=== PATIENT | male | born 1975 | race Caucasian/White ===

== ENCOUNTER 2016-10-26 13:10 | Observation (INO) | payer OTHER, MEDICAID ==
--- NOTE | 2016-10-26 13:23 | CPEKG ---
Heart Rate: 74 RR Interval: 811 P-R Interval: 160 QRSD Interval: 136 QT Interval: 420 QTC Interval: 466 P [place]: 75 QRS [place]: 65 T Wave [place]: 237 EKG Severity - ABNORMAL ECG - EKG Impression: SINUS RHYTHM EKG Impression: LEFT BUNDLE BRANCH BLOCK Electronically Signed By: Chelsea Ybarra 26-Oct-2016 15:32:15
--- NOTE | 2016-10-26 13:27 | EDPHY ---
H & P Stated Complaint: Midsternal CP radiating into L neck/jaw;similiar to previous IL;+n/v Source: Patient - Personal History Current Tetanus Diphtheria and Acellular Pertussis (TDAP): Yes Tetanus Vaccine Date: 2005 - Medical/Surgical History Hx Asthma: No Hx Chronic Respiratory Disease: No Hx Diabetes: Yes Hx Cardiac Disease: Yes Hx Renal Disease: No Hx Cirrhosis: No Hx Alcoholism: No Hx HIV/AIDS: No Hx Splenectomy or Spleen Trauma: No Other PMH: cardiomyopathy, DM1, SZ, anxiety, depression, chronic pain, gastroparesis, GERD, sleep apnea, neuropathy, BPH, neurogenic bladder, urethral stents, urosepsis, migraines, arthritis, cholecystectomy, mi X 3, CVA w/L sided weakness - Social History Smoking Status: Heavy smoker Time Seen by Provider: 10/26/16 13:20 HPI/ROS: CHIEF COMPLAINT: Chest pain with headache HISTORY OF PRESENT ILLNESS: This is a 41-year-old male presenting to the emergency department complaining of chest pain onset 1 hour prior to arrival, patient also reports headache times 1-2 days unresolving with pain med he has at home. Patient states he is on OxyContin 60 mg twice daily and Dilaudid 8 mg four times daily on a regular basis, but has not been able to keep down his medication due to nausea vomiting since yesterday. Patient reported to me that the left-sided weakness is new, has a history of complex migraines. Patient also reported to Dr. Wiggins the weakness to his left side is normal when he gets migraines, but the chest pain is new. REVIEW OF SYSTEMS: Constitutional: No fever, no chills. Eyes: Light sensitivity ENT: No sore throat. Cardiovascular: chest pain. no palpitations. Respiratory: No cough, no shortness of breath. Gastrointestinal: No abdominal pain. Nausea vomiting Genitourinary: No difficulty urinating Musculoskeletal: Chronic neck and back pain. Skin: No rashes. Neurological: headache. (Karon Parra) - Physical Exam Exam: General Appearance: Alert, no distress. Eyes: Pupils equal and round no pallor or injection. ENT, Mouth: Mucous membranes moist. Respiratory: There are no retractions, lungs are clear to auscultation. Cardiovascular: Regular rate and rhythm. Implanted port noted to left upper anterior chest Gastrointestinal: Abdomen is soft and nontender, no masses, bowel sounds normal. Ileostomy due to toxic megacolon 2014 Neurological: Skin: Warm and dry, no rashes. Musculoskeletal: Neck is supple nontender. Extremities: symmetrical, full range of motion. Psychiatric: Patient is oriented X 3, there is no agitation. (Karon Parra) Constitutional: Initial Vital Signs Temperature (C) 36.6 C 10/26/16 13:12 Heart Rate 78 10/26/16 13:12 Respiratory Rate 16 10/26/16 13:12 Blood Pressure 121/63 H 10/26/16 13:12 O2 Sat (%) 94 10/26/16 13:12 O2 Delivery Mode Room Air O2 (L/minute) 2 Allergies/Adverse Reactions: iodine Allergy (Severe, Verified 10/26/16 13:12) Anaphylaxis metoclopramide HCl [From Reglan] Allergy (Severe, Verified 10/26/16 13:12) seizure Penicillins Allergy (Severe, Verified 10/26/16 13:12) Anaphylaxis albuterol Allergy (Intermediate, Verified 10/26/16 13:12) tachycardia and syncope clonazepam Allergy (Intermediate, Verified 10/26/16 13:12) hallucinate haloperidol [From Haldol] Allergy (Intermediate, Verified 10/26/16 13:12) hallucinate azithromycin Allergy (Mild, Verified 10/26/16 13:12) Rash levofloxacin [From Levaquin] Allergy (Mild, Verified 10/26/16 13:12) Rash morphine Allergy (Mild, Verified 10/26/16 13:12) Itching haloperidol lactate [From Haldol] Allergy (Verified 10/26/16 13:12) Home Medications: Medication Instructions Recorded ALPRAZolam [Xanax] 2 mg PO TID PRN 10/26/16 Aspirin EC [Aspirin EC 81 mg (*)] 81 mg PO DAILY 10/26/16 Atenolol [Tenormin 50 mg (*)] 50 mg PO DAILY 10/26/16 Fenofibrate [Lofibra] 160 mg PO DAILY 10/26/16 Fluticasone Nasal [Flonase Nasal 2 sprays [place] BID 10/26/16 [place] (RX)] Gabapentin [Neurontin] 800 mg PO TID 10/26/16 HYDROmorphone HCL [Dilaudid] 8 mg PO Q4 PRN 10/26/16 Insulin Glargine [Lantus 100 40 units SC BID 10/26/16 UNITS/ML (*)] Insulin Lispro [Humalog] 0 unit SQ AD PRN 10/26/16 Lisinopril [Zestril 2.5 mg (*)] 2.5 mg PO DAILY 10/26/16 Omeprazole [Prilosec 20 mg] 20 mg PO DAILY 10/26/16 Ondansetron Odt [Zofran Odt 4 mg 4 mg PO Q4 PRN 10/26/16 (*)] QUEtiapine FUMARATE [Seroquel 200 200 mg PO HS 10/26/16 mg (*)] Sertraline HCl [Zoloft 100mg (*)] 150 mg PO DAILY 10/26/16 Simvastatin 40 mg PO DAILY 10/26/16 Tizanidine HCl [Zanaflex] 8 mg PO TID PRN 10/26/16 Zolpidem Tartrate [Ambien 10 mg] 10 mg PO HS PRN 10/26/16 carBAMazepine [Tegretol] 200 mg PO DAILY 10/26/16 oxyCODONE HCL [Oxycontin] 60 mg PO BID 10/26/16 Medical Decision Making - Diagnostics EKG Interpretation: 12 lead EKG is interpreted in Trace master View by emergency department physician. There is a left bundle branch block that was not seen in the EKG done in 2013. We do not have a more recent EKG available. (Rupali Wiggins) Imaging Results: Imaging Impressions Chest X-Ray 10/26/16 13:42 Impression: There is no acute intrathoracic abnormality. ED Course/Re-evaluation: Discussed the plan of care: CBC, CMP, troponin, EKG, chest x-ray Discussed with Dr. Wiggins abnormal EKG changes from previous in 2013 1445: Patient reports resolved chest pain resolving headache status post Dilaudid 2 mg IV 1500: Spoke with Dr. Layton, patient admitted tele admit, for further evaluation. Discussed patient admitted with patient and family agreed with plan. 1515: No apparent distress, patient reports resolving chest pain, no nausea vomiting. (Karon Parra) Differential Diagnosis: Other differential diagnosis considered but not limited to STEMI, CVA and nausea vomiting (Karon Parra) Other Provider: I have evaluated and participated in the management of this patient. My co- signature indicates that I have reviewed this chart and that I agree with the findings and the plan of care as documented. My personal history and physical findings include: 41-year-old male with history of migraine headaches that are complex and often associated with left-sided weakness. He also has a history of coronary artery disease, status post myocardial infarction over 10 years ago. He has a history of insulin-dependent diabetes. He has a gastric stimulator in place. He presents today with headache and left-sided weakness that he says are entirely consistent with his previous migraine headaches. He has been evaluated for these fully in the past. He had a head CT performed about 2 months ago, per his report. He cannot recall what hospital has these records. He is also reporting substernal chest pressure that began about 1 hour ago. His headaches are not usually accompanied by chest pain. He has associated nausea and some diaphoresis but is unable to determine whether these symptoms are related to headache or chest pain. He states that he has tried every medication for his migraine headaches. He cannot tolerate any medication other than Dilaudid. Our records indicate that he has left against medical advice in the past when he did not receive opiates. (Rupali Wiggins) - Data Points Laboratory Results: Laboratory Results 10/26/16 13:40 10/26/16 13:40 10/26/16 10/26/16 10/26/16 13:40 13:40 13:40 WBC 9.84 10^3/uL H 10^3/uL (3.80-9.50) RBC 3.69 10^6/uL L 10^6/uL (4.40-6.38) Hgb 8.1 g/dL L g/dL (13.7-17.5) Hct 27.2 % L % (40.0-51.0) MCV 73.7 fL L fL (81.5-99.8) MCH 22.0 pg L pg (27.9-34.1) MCHC 29.8 g/dL L g/dL (32.4-36.7) RDW 16.6 % H % (11.5-15.2) Plt Count 316 10^3/uL 10^3/uL (150-400) MPV 9.7 fL fL (8.7-11.7) Neut % (Auto) 68.1 % % (39.3-74.2) Lymph % (Auto) 25.8 % % (15.0-45.0) Bartholomew % (Auto) 3.6 % L % (4.5-13.0) Eos % (Auto) 1.2 % % (0.6-7.6) Baso % (Auto) 1.0 % % (0.3-1.7) Nucleat RBC Rel Count 0.0 % % (0.0-0.2) Absolute Neuts (auto) 6.70 10^3/uL H 10^3/uL (1.70-6.50) Absolute Lymphs (auto) 2.54 10^3/uL 10^3/uL (1.00-3.00) Absolute Monos (auto) 0.35 10^3/uL 10^3/uL (0.30-0.80) Absolute Eos (auto) 0.12 10^3/uL 10^3/uL (0.03-0.40) Absolute Basos (auto) 0.10 10^3/uL 10^3/uL (0.02-0.10) Absolute Nucleated RBC 0.00 10^3/uL 10^3/uL (0-0.01) Immature Gran % 0.3 % % (0.0-1.1) Immature Gran # 0.03 10^3/uL 10^3/uL (0.00-0.10) PT 14.2 SEC SEC (12.0-15.0) INR 1.11 (0.83-1.16) Sodium 139 mEq/L mEq/L (134-144) Potassium 4.0 mEq/L mEq/L (3.5-5.2) Chloride 107 mEq/L mEq/L (97-110) Carbon Dioxide 23 mEq/l mEq/l (22-31) Anion Gap 9 mEq/L mEq/L (8-16) BUN 10 mg/dL mg/dL (7-23) Creatinine 1.2 mg/dL mg/dL (0.7-1.3) Estimated GFR > 60 Glucose 176 mg/dL H mg/dL (70-100) Calcium 8.6 mg/dL mg/dL (8.5-10.4) Troponin I < 0.012 ng/mL ng/mL (0-0.034) Medications Given: Discontinued Medications Hydromorphone HCl (Dilaudid) 2 mg IVP EDNOW ONE Stop: 10/26/16 14:28 Last Admin: 10/26/16 14:40 Dose: 2 mg Sodium Chloride (Ns) 1,000 mls @ 0 mls/hr IV ONCE ONE PRN Reason: Wide Open Stop: 10/26/16 13:43 Last Admin: 10/26/16 13:44 Dose: 1,000 mls Ondansetron HCl (Zofran) 4 mg IVP EDNOW ONE Stop: 10/26/16 14:29 Last Admin: 10/26/16 14:49 Dose: 4 mg Departure - Departure Disposition: [facility] Clinical Impression: Abnormal EKG Chest pain Qualifiers: Chest pain type: unspecified Qualified Code(s): R07.9 - Chest pain, unspecified Condition: Good
[2016-10-26] MEDS ORDERED: NS 1,000 ML IV ONE (13:42)
[2016-10-26 13:45] LABS: % IMMATURE GRANULYOCYTES 0.3 % (0.0-1.1); ABSOLUTE IMMATURE GRANULOCYTES 0.03 10^3/uL (0.00-0.10); ADD DIFF? NO; ADD MORPH? NO; ADD SCAN? NO; ATYPICAL LYMPHOCYTE FLAG 10 (0-99); FRAGMENT RBC FLAG 20 (0-99); HEMATOCRIT 27.2 % (40.0-51.0); HEMOGLOBIN 8.1 g/dL (13.7-17.5); LEFT SHIFT FLG 0 (0-99); LIPEMIA HEMOLYSIS FLAG 70 (0-99); MEAN CELL HEMOGLOBIN CONCENTR. 29.8 g/dL (32.4-36.7); MEAN CELL VOLUME 73.7 fL (81.5-99.8); MEAN PLATELET VOLUME 9.7 fL (8.7-11.7); PLATELET CLUMPS FLAG 0 (0-99); PLATELET COUNT 316 10^3/uL (150-400); RED BLOOD CELL COUNT 3.69 10^6/uL (4.40-6.38); RED CELL DISTRIBUTION WIDTH 16.6 % (11.5-15.2)
[2016-10-26 13:58] LABS: ANION GAP 9 mEq/L (8-16); CALCIUM 8.6 mg/dL (8.5-10.4); CARBON DIOXIDE 23 mEq/l (22-31); CHLORIDE 107 mEq/L (97-110); CREATININE 1.2 mg/dL (0.7-1.3); GLOMERULAR FILTRATION RATE > 60; GLUCOSE 176 mg/dL (70-100); INR 1.11 (0.83-1.16); PROTIME(PATIENT) 14.2 SEC (12.0-15.0); SODIUM 139 mEq/L (134-144)
[2016-10-26 14:10] LABS: TROPONIN I < 0.012 ng/mL (0-0.034)
[2016-10-26] MEDS ORDERED: HYDROmorphONE/DILAUDID 1 MG/ML SYR IVP ONE (14:27)
[2016-10-26] MEDS ORDERED: ONDANSETRON 4 MG/2 ML VIAL IVP ONE (14:28)
[2016-10-26] MEDS ORDERED: ONDANSETRON DISINTEGRATING 4 MG TAB PO PRN (15:40)
[2016-10-26] MEDS ORDERED: TEMAZEPAM 15 MG CAP PO PRN (15:40)
[2016-10-26] MEDS ORDERED: METOCLOPRAMIDE 10 MG TAB PO PRN (15:40)
[2016-10-26] MEDS ORDERED: ACETAMINOPHEN 325 MG TAB PO PRN (15:40)
[2016-10-26] MEDS ORDERED: METOCLOPRAMIDE 10 MG/2 ML VIAL IVP PRN (15:40)
[2016-10-26] MEDS ORDERED: ALPRAZOLAM 2 MG PO PRN (15:44)
[2016-10-26] MEDS ORDERED: NON-FORMULARY NEW DRUG (Zolpidem Tartrate [Ambien 10 Mg] 10 MG) PO PRN (15:44)
[2016-10-26] MEDS ORDERED: HYDROMORPHONE HCL 8 MG PO PRN (15:44)
[2016-10-26] MEDS ORDERED: D50W 25 GM/50 ML SYR IVP PRN (15:50)
[2016-10-26] MEDS ORDERED: NON-FORMULARY NEW DRUG (Gabapentin [Neurontin] 800 MG) PO SCH (16:00)
[2016-10-26] MEDS ORDERED: HYDROmorphONE/DILAUDID 1 MG/ML SYR IVP STA (16:04)
[2016-10-26] MEDS ORDERED: HYDROmorphONE/DILAUDID 1 MG/ML SYR ONE (16:05)
--- NOTE | 2016-10-26 17:04 | GHP ---
[f rep st] HISTORY AND PHYSICAL DATE OF ADMISSION: 10/26/2016 CHIEF COMPLAINT: Primarily chest pain. HISTORY OF PRESENT ILLNESS: This is a 41-year-old man with multiple medical problems who presents with a few complaints, primarily chest pain. This is described as substernal pressure, exertional and relieved with rest. This has been off and on for a few days. He has a history of, he tells me, 3 MIs. His only stent was in August 2015. This was done at [facility]. He is not sure exactly where this was placed. He had been on aspirin and Plavix for a year. He has been taken off Plavix about 2 months ago. He also complains of a worsening migraine, with some nausea and vomiting. He has complex migraines and has some left-sided weakness, which is typical for his migraines. PAST MEDICAL/SURGICAL HISTORY: 1. "Toxic megacolon" status post total colectomy in May 2015 at [facility]. 2. Coronary artery disease status post stent, as above, in August 2015. 3. Complex migraines. 4. Diabetes mellitus type 1. 5. BPH. 6. Chronic pain, on continuous narcotics. 7. History of hypertrophic obstructive cardiomyopathy. 8. Depression. 9. Foot surgery. 10. Osteomyelitis. 11. Seizure disorder. MEDICATIONS: Please see medication reconciliation. ALLERGIES: Iodine, Reglan, penicillin, albuterol, clonazepam, Haldol, azithromycin, Levaquin, morphine. SOCIAL HISTORY: He is . He smokes. He does not drink. FAMILY HISTORY: Notable for coronary artery disease. REVIEW OF SYSTEMS: A 10-point review of systems is conducted and is negative, except per HPI. PHYSICAL EXAMINATION: VITAL SIGNS: Blood pressure 111/64, heart rate is 69, respiration rate 16, saturating 100% on 2 L, temperature is 36.6. GENERAL: The patient is a pleasant man who is resting in bed. Appears comfortable. HEENT: Shows him to be normocephalic, atraumatic. CHEST: Shows him to have a left-sided port in place. CARDIOVASCULAR: Regular rate and rhythm. No murmurs , rubs, or gallops. PULMONARY: Lungs are clear to auscultation bilaterally. ABDOMEN: Soft, nontender, nondistended. He has a right lower quadrant ileostomy. SKIN: Shows multiple tattoos, but no rash. : No Link. NEUROLOGIC: Shows him to be alert and oriented x3. He is moving all extremities. PSYCHIATRIC: Shows normal mood and affect. LABS: White count is 9.8, hemoglobin is 8.1. INR is 1.1. Basic metabolic panel is normal. Initial troponin is negative. DATA: Chest x-ray, which I personally viewed and interpreted, shows left-sided port in place. Normal-sized heart. Nothing acute. EKG, which I personally viewed and interpreted, shows left bundle branch block. I compared this to previous. He had an incomplete left bundle previously. IMPRESSION AND PLAN: A 41-year-old man with a history of coronary artery disease, presents with chest pain. 1. Chest pain: Discussed with Tiffanie Pressley. Cardiology will consult. Will trend his troponins. Note that he has a left bundle branch block. He did previously have an incomplete left bundle. I have ordered an echocardiogram. Will defer to Cardiology on ischemic evaluation. 2. Complex migraine with acute headache. This is better. This is a chronic problem for him. 3. Anemia. I compared this to his recent hemoglobin on [place], and he is no more anemic than previously. Will not workup further, other than getting a hemoglobin tomorrow morning. 4. Nausea and vomiting. I have provided him with symptomatic relief. This is also somewhat of a chronic problem for him. 5. Diabetes mellitus type 1 with multiple complications. Continue his home insulin. 6. Chronic pain, on continuous narcotics. Will continue his home high-dose narcotics for now. 7. Seizure disorder. Tegretol. /[id number]/MODL MTDD
[2016-10-26] MEDS ORDERED: ALPRAZolam 1 MG TAB PO PRN (17:31)
[2016-10-26] MEDS ORDERED: ZOLPIDEM TARTRATE 5 MG TAB PO PRN (17:39)
[2016-10-26] MEDS ORDERED: PROMETHAZINE HCL 25 MG TAB PO PRN (18:18)
[2016-10-26] MEDS: HYDROmorphONE/DILAUDID 1 MG/ML SYR IVP PRN ×2 (18:36→22:22)
[2016-10-26] MEDS: INSULIN LISPRO 100 UNIT/ML SC SCH (19:43)
[2016-10-26] MEDS ORDERED: NON-FORMULARY NEW DRUG (Oxycodone Hcl [Oxycontin] 60 MG) PO SCH (21:00)
[2016-10-26] MEDS: INSULIN GLARGINE 100 UNITS/ML SYRINGE SC SCH (21:04)
[2016-10-26] MEDS: FLUTICASONE NASAL 120 SPRAYS/16 GM MDI EACHNARE SCH (21:04)
[2016-10-26] MEDS: QUEtiapine FUMARATE 200 MG TAB PO SCH (21:04)
[2016-10-26] MEDS: GABAPENTIN 400 MG CAP PO SCH (21:04)
[2016-10-26] MEDS: oxyCODONE CR 30 MG TAB PO SCH (21:04)
[2016-10-26] MEDS: ONDANSETRON 4 MG/2 ML VIAL IVP PRN (21:17)
[2016-10-27] MEDS: QUEtiapine FUMARATE 200 MG TAB PO SCH (00:28)
[2016-10-27] MEDS: GABAPENTIN 400 MG CAP PO SCH ×3 (00:28→16:07)
[2016-10-27] MEDS: oxyCODONE CR 30 MG TAB PO SCH ×2 (00:29→09:10)
[2016-10-27] MEDS: HYDROmorphONE/DILAUDID 1 MG/ML SYR IVP PRN ×4 (02:25→14:28)
[2016-10-27 05:26] LABS: % IMMATURE GRANULYOCYTES 0.5 % (0.0-1.1); ABSOLUTE IMMATURE GRANULOCYTES 0.05 10^3/uL (0.00-0.10); ADD DIFF? NO; ADD MORPH? NO; ADD SCAN? NO; ATYPICAL LYMPHOCYTE FLAG 10 (0-99); FRAGMENT RBC FLAG 20 (0-99); HEMATOCRIT 26.5 % (40.0-51.0); HEMOGLOBIN 7.9 g/dL (13.7-17.5); LEFT SHIFT FLG 0 (0-99); LIPEMIA HEMOLYSIS FLAG 70 (0-99); MEAN CELL HEMOGLOBIN 22.3 pg (27.9-34.1); MEAN CELL HEMOGLOBIN CONCENTR. 29.8 g/dL (32.4-36.7); MEAN CELL VOLUME 74.6 fL (81.5-99.8); MEAN PLATELET VOLUME 9.7 fL (8.7-11.7); PLATELET CLUMPS FLAG 0 (0-99); PLATELET COUNT 296 10^3/uL (150-400); RED BLOOD CELL COUNT 3.55 10^6/uL (4.40-6.38); RED CELL DISTRIBUTION WIDTH 16.7 % (11.5-15.2)
[2016-10-27 05:47] LABS: ALANINE AMINOTRANSFERASE 24 IU/L (21-72); ALBUMIN 3.5 g/dL (3.5-5.0); ALKALINE PHOSPHATASE 77 IU/L (38-126); ANION GAP 6 mEq/L (8-16); ASPARTATE AMINOTRANSFERASE 17 IU/L (17-59); BILIRUBIN,TOTAL 0.5 mg/dL (0.1-1.4); CALCIUM 8.9 mg/dL (8.5-10.4); CARBON DIOXIDE 25 mEq/l (22-31); CHLORIDE 110 mEq/L (97-110); GLOMERULAR FILTRATION RATE > 60; GLUCOSE 56 mg/dL (70-100); POTASSIUM 4.1 mEq/L (3.5-5.2); SODIUM 141 mEq/L (134-144); TOTAL PROTEIN 6.4 g/dL (6.3-8.2)
[2016-10-27 05:53] LABS: TROPONIN I < 0.012 ng/mL (0-0.034)
[2016-10-27] MEDS: ONDANSETRON 4 MG/2 ML VIAL IVP PRN (08:13)
[2016-10-27] MEDS ORDERED: LISINOPRIL 2.5 MG TAB PO SCH (09:00)
[2016-10-27] MEDS ORDERED: PANTOPRAZOLE SODIUM 40 MG TAB PO SCH (09:00)
[2016-10-27] MEDS ORDERED: FENOFIBRATE 160 MG PO SCH ×2 (09:00)
[2016-10-27] MEDS ORDERED: NON-FORMULARY NEW DRUG (Simvastatin [Simvastatin] 40 MG) PO SCH (09:00)
[2016-10-27] MEDS ORDERED: carBAMazepine 200 MG TAB PO SCH (09:00)
[2016-10-27] MEDS ORDERED: ATORVASTATIN CALCIUM 20 MG TAB PO SCH (09:00)
[2016-10-27] MEDS ORDERED: ATENOLOL 50 MG TAB PO SCH (09:00)
[2016-10-27] MEDS ORDERED: SERTRALINE HCL 100 MG TAB PO SCH (09:00)
[2016-10-27] MEDS ORDERED: NON-FORMULARY NEW DRUG (Omeprazole [Prilosec 20 Mg] 20 MG) PO SCH (09:00)
[2016-10-27] MEDS ORDERED: ASPIRIN EC 81 MG TAB PO SCH (09:00)
--- NOTE | 2016-10-27 09:15 | ECHO ---
[id number] + + [address] : : [place] [address] : : [phone] + Adult Echocardiographic Report + ----+ :Name: MARLA FLORENTINO WStudy Date: 10/26/2016 04:05 PM : : Hospital Admission Number: [id number] Location : ER: :: 1975 Gender: Male Height: 83 in : :Age: 41 yrs Race: WH Weight: 230 lb : :Reason For Study: Chest pain/hx HOCM : : BSA: 2.5 meters2 : + ----+ MMode/2D Measurements \T\ Calculations IVSd: 1.2 cm LVIDd: 5.2 cm FS: 36.1 % Ao root diam: LVPWd: 0.96 cm LVIDs: 3.3 cm EDV(Teich): 3.8 cm 131.8 ml LA dimension: ESV(Teich): 3.8 cm 45.8 ml EF(Teich): 65.3 % LVLd ap4: 8.0 cm SV(MOD-sp4): EDV(MOD-sp4): 44.0 ml 67.0 ml LVLs ap4: 6.4 cm ESV(MOD-sp4): 23.0 ml EF(MOD-sp4): 65.7 % Normal Measurement Values: + + :LVIDd (3.5-5.7cm) IVSd (0.6-1.1cm) LVPWd (0.6-1.1cm) Aortic Root (2.0-3.7cm)Left Atrium (1.5-4.0cm): :LV Vol(d) (76-115ml) LV Vol(s) (29-48ml) Ejec Fraction (50-65%)PV Isael (0.6- 1.2m/s) TV Isael (0.4-1.0m/s) : :MV E Isael (0.8-1.0m/s)MV A Isael (0.3-1.0m/s)LVOT Isael (0.7-1.2m/s) Asc Ao Isael ( 0.9-1.8m/s) : + + Doppler Measurements \T\ Calculations MV E max isael: 73.1 cm/sec MV A max isael: 66.1 cm/sec MV E/A: 1.1 Left Ventricle The left ventricle is normal in size. There is mild concentric left ventricular hypertrophy. Left ventricular systolic function is normal. Ejection Fraction = 70-75%. No regional wall motion abnormalities noted. Right Ventricle The right ventricle is normal in size and function. Atria The left atrial size is normal. Right atrial size is normal. The interatrial septum is intact with no evidence for an atrial septal defect. Mitral Valve The mitral valve is normal in structure and function. There is no evidence of mitral valve prolapse. There is no mitral valve stenosis. There is mild mitral regurgitation. Tricuspid Valve Normal tricuspid valve. There is trace tricuspid regurgitation. Aortic Valve The aortic valve is trileaflet. The aortic valve opens well. Mild subvalvular aortic stenosis. Gradient subvalvular AV is 16mmHG. There is no aortic insufficiency. Pulmonic Valve The pulmonic valve is normal in structure and function. There is no pulmonic valvular regurgitation. Great Vessels The aortic root is normal size. Pericardium/Pleural Trivial anterior pericardial effusion. Conclusion A complete two-dimensional transthoracic echocardiogram was performed (2D, M-mode, Doppler and color flow Doppler). Normal LV size. Left ventricular systolic function is normal. Ejection Fraction = 70-75%. There is mild concentric left ventricular hypertrophy. There are no regional wall motion abnormalities. Mild prominence of the basal interventricular septum without other findings suggesting HCM. Normal appearing cardiac valves. Elevated LVOT velocities without a dynamic LVOT obstruction. There is mild mitral regurgitation. There is trace tricuspid regurgitation. Trivial anterior pericardial effusion Final Reading Physician: Cheng Georges signed on 10/27/2016 09:13 AM Ordering Physician: Royal Layton Performed By: Carly Landin, DESHAWNCS
[2016-10-27] MEDS: HYDROmorphONE/DILAUDID 4 MG TAB PO PRN ×3 (09:17→17:31)
[2016-10-27] MEDS ORDERED: INSULIN GLARGINE 100 UNITS/ML SYRINGE SC SCH ×2 (09:28→10:15)
[2016-10-27] MEDS: INSULIN LISPRO 100 UNIT/ML SC SCH ×3 (10:05→16:11)
--- NOTE | 2016-10-27 10:38 | HOSPPROG ---
Hospitalist Progress Note Assessment/Plan: DIAGNOSES: -stated chest pain; will rule out for myocardial infarction but states history of stent placed at [facility] last year -stated Headache; this is a recurrence of his chronic headache -nausea with 1 episode of emesis last night, taking oral medicines now -chronic neck pain and headache with chronic daily narcotic dependency, prescribed -microcytic anemia; the cause for this is unclear but presumably it may represent iron deficiency but will check iron to be certain it is not due to some other cause. The anemia reason paste next [place] react the chronic and appears to be at his baseline. He reports history of colectomy for toxic megacolon This patient presents with a variety of pains, with a white blood cell count elevation being the only objective finding of any kind so far. He does have a chronic prescribed narcotic dependency for chronic pain, and has a MediPort in place for reasons which are unclear to me. I did look in the [facility] the software and I see that he does not appear to be getting much in the way of extra narcotic beyond his usual however I noticed that his last 6 prescriptions for narcotic have come from 5 different physicians. PLANS: -he will be getting a Lexiscan stress test today(has left bundle branch block) -will try and stick with oral narcotic medicines at his usual doses as much as possible, and he should not need any new prescriptions when he leaves he just got full prescriptions on October 05 - SUBJECTIVE: Chest pain seems to have resolved Today complains of severe headache which is a chronic issue for him No more vomiting today, had nausea which responded to Zofran and was able to take his oral pills today OBJECTIVE Vitals reviewed: Stable without fever [employer], my review: Sinus rhythm, left bundle branch block Exam: alert oriented skin warm dry color ok resps not labored lungs clear BSs heart regular abd soft nondistended nontender, bowel sounds present limbs warm, no edema iv site ok Laboratory data: Troponin normal Echocardiogram: Preserved LV function at 70% ejection fraction, increased outflow tract velocities are mentioned without findings of outflow tract obstruction Objective: Vital Signs Temp Pulse Resp BP Pulse Ox 36.9 C 64 9 L 106/58 L 100 10/27/16 07:46 10/27/16 07:46 10/27/16 07:46 10/27/16 07:46 10/27/16 07:46 Laboratory Results 10/27/16 05:10 10/27/16 05:10 10/26/16 10/27/16 10/28/16 06:59 06:59 06:59 Intake Total 1400 Output Total 1200 275 Balance 200 -275 PT 14.2 SEC (12.0-15.0) 10/26/16 13:40 INR 1.11 (0.83-1.16) 10/26/16 13:40 ICD10 Worksheet Patient Problems: Problems Problem Status Onset Abnormal EKG Acute Chest pain Acute Nausea and vomiting Acute UTI (lower urinary tract infection) Acute
[2016-10-27] MEDS: INSULIN GLARGINE 100 UNITS/ML SYRINGE SC SCH (12:01)
[2016-10-27] MEDS: FLUTICASONE NASAL 120 SPRAYS/16 GM MDI EACHNARE SCH (12:12)
[2016-10-27] MEDS ORDERED: REGADENOSON 0.4 MG/5 ML SYR IVP ONE (14:06)
--- NOTE | 2016-10-27 14:21 | PDCARST ---
CAR Stress Test Results Type of Stress Test: Lexiscan Indication: cp/CAD Description of Procedure: After informed consent was obtained, pt was established to ECG, blood pressure, HR and oximetry monitoring. STRESS EKG AND HEMODYNAMIC DATA. Resting heart rate: 61 BPM. Resting ECSR, LBBB. Resting blood pressure: 107/59 mmHg. O2 saturation at rest: 92%. Peak heart rate: 90 BPM. Peak blood pressure: 120/61 mmHg. Arrhythmias: none. Symptoms: The patient experienced no typical symptoms of angina during stress or recovery. Stress/Infusion ECG: No change in rhythm with no significant ST/T wave changes. Stress/infusion O2 saturation: 99% Impression: Uneventful Lexiscan infusion. Conclusion: Await nuclear images.
[2016-10-27 15:53] VITALS: BP 111/59; PULSE 65; RESP 17; TEMP 98.6; O2SAT 95
[2016-10-27] MEDS ORDERED: PROCHLORPERAZINE MALEATE 25 MG SUPPR PR PRN (18:19)
[2016-10-27] MEDS ORDERED: PROCHLORPERAZINE MALEATE 10 MG TAB PO PRN (18:20)
--- NOTE | 2016-10-27 18:36 | PDDCSUM ---
Discharge Summary Discharge Summary: DISCHARGE DIAGNOSES: -Chest pain, resolved, myocardial infarction is ruled out -stress test with myocardial perfusion imaging showing no evidence of cardiac dysfunction or ischemia or infarction - anemia, microcytic PROCEDURES: -stress test with myocardial perfusion imaging, normal -echocardiogram with normal ejection fraction, no evidence of wall motion abnormalities HOSPITAL COURSE SUMMARY: This patient came to the hospital with the main complaint of chest pain and stating a history of 3 prior myocardial infarctions and previous cardiac stenting. He also complained of headache and nausea which were symptoms typical of his previous migraine headaches. He has a chronic pain syndrome with chronic headache and neck pain as the primary components, and is on chronic daily prescribed narcotics for this the at moderately high doses. Here in the hospital he had no heart failure and no arrhythmia and ruled out for myocardial infarction. The patient did undergo Lexiscan stress testing which he tolerated well. The images showed no evidence of previous infarction, no evidence of ischemia, normal ejection fraction. He also had an echocardiogram here showing no evidence of wall motion abnormalities and normal ejection fraction was seen. He was assessed elsewhere for what he reports as his 3 prior myocardial infarctions. Whether these were episodes associated with small troponin elevations and minimal injury that would not be seen on imaging studies or whether these really happened is uncertain as I do not have the outside records at this time. At this point his pain is completely resolved he is not having any shortness of breath and there is no sign of other significant or concerning cause of his chest pain syndrome. From the standpoint he is stable for discharge to home. 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 The patient did complain of ongoing headache and nausea here. The nausea he says still present but he has been eating large meals during the day today. He has complained of inadequate pain relief with his oral narcotic medicines which are moderately high in dose. He was requesting IV narcotic pretty much by the clock as it had been ordered a p.r.n. medicine here. This afternoon I spoke with the patient and his and recommended that would look for other ways to manage his headache pain and I suggested using some Compazine and some Solu- Medrol and possibly Toradol as he is allergic to Phenergan and can't take statin medicines with a history of heart disease. After this discussion the patient and his decided they would prefer to leave the hospital and manage his symptoms at home. He does have an appointment with his primary pain physician Dr. Brian Orta tomorrow at 1 o'clock. The patient does have anemia which is chronic for him and unchanged from the last laboratory data which we had here. This was microcytic and is recommended that he have ongoing evaluation with his primary doctor care doctor MEDICATION CHANGES: none FOLLOW-UP PLAN: with Dr. Orta tomorrow and his primary care physician in 2 days Greater than 35 minutes bedside and care coordination time today
[2016-10-28] MEDS ORDERED: methylPREDNISolone SOD SUCC 125 MG/2 ML VIAL IVP SCH
== END 2016-10-27 19:26 | disposition home or self-care (01) ==
LOC: INTOOBSV 15:09 → F2W 17:16
PROVIDERS: ADMIT Student in an Organized Health Care Education/Training Program; ATTEND Internal Medicine
DX: R07.9 Chest pain, unspecified (principal); D64.9 Anemia, unspecified; I25.2 Old myocardial infarction; Z95.5 Presence of coronary angioplasty implant and graft; G89.4 Chronic pain syndrome; G43.909 Migraine, unspecified, not intractable, without status migrainosus; I42.9 Cardiomyopathy, unspecified; E10.43 Type 1 diabetes mellitus with diabetic autonomic (poly)neuropathy; F32.9 Major depressive disorder, single episode, unspecified; F41.9 Anxiety disorder, unspecified; K21.9 Gastro-esophageal reflux disease without esophagitis; G47.30 Sleep apnea, unspecified; N40.0 Benign prostatic hyperplasia without lower urinary tract symptoms; I69.954 Hemiplegia and hemiparesis following unspecified cerebrovascular disease affecting left non-dominant side; F17.200 Nicotine dependence, unspecified, uncomplicated
CPT/HCPCS: 71010; 78452; 93005; 93017; 93306; 96374; 96375; 97161; 99285; A9500; G0378; G8978; G8979; J1170; J1642; J1815; J2405; J2785

== ENCOUNTER 2016-11-02 15:26 | Emergency (ER) | payer OTHER, MEDICAID ==
--- NOTE | 2016-11-02 15:55 | CPEKG ---
Heart Rate: 68 RR Interval: 882 P-R Interval: 160 QRSD Interval: 134 QT Interval: 424 QTC Interval: 451 P [place]: 73 QRS [place]: 57 T Wave [place]: 210 EKG Severity - ABNORMAL ECG - EKG Impression: SINUS RHYTHM EKG Impression: LEFT BUNDLE BRANCH BLOCK Electronically Signed By: Josemanuel Ferris 02-Nov-2016 21:13:46
--- NOTE | 2016-11-02 15:55 | EDPHY ---
H & P Stated Complaint: Here last week;CP has "never gone away";still n/v;can't keep pain meds down HPI/ROS: HPI CHIEF COMPLAINT: Nausea vomiting HISTORY OF PRESENT ILLNESS: This patient very pleasant 41-year-old male significant past medical history for chronic pain, migraine headaches, and recent hospitalization for chest pain with an abnormal EKG, as well as nausea vomiting, At that time he had a negative nuclear stress test and was ruled out for acute coronary syndrome. He also had a normal echocardiogram. His recent hospitalization discharge summary was reviewed. Patient presents back to the emergency room for persistent nausea vomiting. Patient denies any significant chest pain or shortness of breath at this time but does state that the reason he came back is persistent nausea vomiting. He is unable to tolerate his home medications. He tells me he has tried Phenergan and Zofran at home. He denies fever. Denies cough. He states he is unable to tolerate p. o. and cannot take his daily medications including seizure medications became concerned that he cannot take his seizure medications down it return emergency room for further IV fluids and nausea medicine. He does tell me the output of his ileostomy has been watery. Past Medical History: Multiple chronic medical problems including insulin- dependent diabetes, diabetic gastroparesis, narcotic dependency, BPH, chronic pain, seizures, hypertrophic cardiomyopathy, osteomyelitis. Past Surgical History: Left chest port, ileostomy due to toxic megacolon Social History: Denies daily use of drugs alcohol tobacco products does take 8 mg p.o. Dilaudid every 4 hours Family History: Noncontributory ROS REVIEW OF SYSTEMS: A comprehensive 10 point review of systems is otherwise negative aside from elements mentioned in the history of present illness. Exam Constitutional appears well nontoxic triage nursing summary reviewed, vital signs reviewed, awake/alert. Eyes normal conjunctivae and sclera, EOMI, PERRLA. HENT normal inspection, atraumatic, moist mucus membranes, no epistaxis, neck supple/ no meningismus, no raccoon eyes. Respiratory clear to auscultation bilaterally, normal breath sounds, no respiratory distress, no wheezing. Cardiovascular left chest: Port left-sided chest, rate normal, regular rhythm , no murmur, no edema, distal pulses normal. Gastrointestinal right lower quadrant abdomen ileostomy present, liquid output , soft, non-tender, no rebound, no guarding, normal bowel sounds, no distension , no pulsatile mass. Genitourinary no CVA tenderness. Musculoskeletal no midline vertebral tenderness, full range of motion, no calf swelling, no tenderness of extremities, no meningismus, good pulses, neurovascularly intact. Skin pink, warm, & dry, no rash, skin atraumatic. Neurologic awake, alert and oriented x 3, AAOx3, moves all 4 extremities equally, motor intact, sensory intact, CN II-XII intact, normal cerebellar, normal vision, normal speech. Psychiatric normal mood/affect. Heme/Lymph/Immune no lymphadenopathy. Differential Diagnosis: Includes but is not limited to in a particular order, electrolyte disturbance, dehydration, acute kidney injury, acute nausea vomiting from gastroparesis Medical Decision Making: Plan for this patient IV establishment, IV fluid bolus , IV nausea medication Zofran IV Dilaudid for acute pain control 2 mg. Check electrolytes, EKG chest x-ray blood work. Re-evaluate. Re-evaluation: EKG interpretation by me on record in [employer] system. Impression time of EKG 1554, this is sinus rhythm rate of 68 there is a left bundle-branch block present. Otherwise unremarkable EKG had on appreciate acute ischemia with this EKG of left bundle-branch block. When compared to his old EKG no acute changes. This is compared to the EKG dated 10/26/2016. 1741: Re-examination at this time patient is feeling better with IV fluids and nausea medicine. Does tell me he is slightly still nauseous I have ordered an p.o. Compazine. This time I did re-evaluate he is resting comfortably abdomen soft. He is listening to music to headphones resting comfortably. 194: Re-evaluation at this time patient initially did have worsening nausea 2nd around the meds have been ordered 2 more mg IV Dilaudid 25 mg of Benadryl this was after IV Valium and Compazine. Re-evaluate shortly. 2002: Re-evaluation at this time patient feels much better after IV Dilaudid IV Benadryl is resting comfortably no vomiting able to p.o. challenge well. Is requesting be discharged home. Is stands should follow up with his primary care doctor return to the emergency room if develops any further symptoms of vomiting or can't tolerate p.o.. Source: Patient - Personal History Current Tetanus Diphtheria and Acellular Pertussis (TDAP): Yes Tetanus Vaccine Date: 2005 - Medical/Surgical History Hx Asthma: No Hx Chronic Respiratory Disease: No Hx Diabetes: Yes Hx Cardiac Disease: Yes Hx Renal Disease: No Hx Cirrhosis: No Hx Alcoholism: No Hx HIV/AIDS: No Hx Splenectomy or Spleen Trauma: No Other PMH: cardiomyopathy, DM1, SZ, anxiety, depression, chronic pain, gastroparesis, GERD, sleep apnea, neuropathy, BPH, neurogenic bladder, urethral stents, urosepsis, migraines, arthritis, cholecystectomy, mi X 3, CVA w/L sided weakness - Social History Smoking Status: Heavy smoker Constitutional: Initial Vital Signs Temperature (C) 37 C 11/02/16 15:30 Heart Rate 70 11/02/16 15:30 Respiratory Rate 16 11/02/16 15:30 Blood Pressure 109/58 L 11/02/16 15:30 O2 Sat (%) 97 11/02/16 15:30 O2 Delivery Mode Nasal Cannula O2 (L/minute) 2 Allergies/Adverse Reactions: iodine Allergy (Severe, Verified 11/02/16 15:28) Anaphylaxis metoclopramide HCl [From Reglan] Allergy (Severe, Verified 11/02/16 15:28) seizure Penicillins Allergy (Severe, Verified 11/02/16 15:28) Anaphylaxis albuterol Allergy (Intermediate, Verified 11/02/16 15:28) tachycardia and syncope clonazepam Allergy (Intermediate, Verified 11/02/16 15:28) hallucinate haloperidol [From Haldol] Allergy (Intermediate, Verified 11/02/16 15:28) hallucinate azithromycin Allergy (Mild, Verified 11/02/16 15:28) Rash levofloxacin [From Levaquin] Allergy (Mild, Verified 11/02/16 15:28) Rash morphine Allergy (Mild, Verified 11/02/16 15:28) Itching haloperidol lactate [From Haldol] Allergy (Verified 11/02/16 15:28) Home Medications: Medication Instructions Recorded ALPRAZolam [Xanax] 2 mg PO TID PRN 10/26/16 Aspirin EC [Aspirin EC 81 mg (*)] 81 mg PO DAILY 10/26/16 Atenolol [Tenormin 50 mg (*)] 50 mg PO DAILY 10/26/16 Fenofibrate [Lofibra] 160 mg PO DAILY 10/26/16 Fluticasone Nasal [Flonase Nasal 2 sprays EACHNARE BID 10/26/16 [place]] Gabapentin [Neurontin] 800 mg PO TID 10/26/16 HYDROmorphone HCL [Dilaudid] 8 mg PO Q4 PRN 10/26/16 Insulin Glargine [Lantus 100 40 units SC BID 10/26/16 UNITS/ML (*)] Insulin Lispro [Humalog] 0 unit SQ AD PRN 10/26/16 Lisinopril [Zestril 2.5 mg (*)] 2.5 mg PO DAILY 10/26/16 Omeprazole [Prilosec 20 mg] 20 mg PO DAILY 10/26/16 Ondansetron Odt [Zofran Odt 4 mg 4 mg PO Q4 PRN 10/26/16 (*)] QUEtiapine FUMARATE [Seroquel 200 200 mg PO HS 10/26/16 mg (*)] Sertraline HCl [Zoloft 100mg (*)] 150 mg PO DAILY 10/26/16 Simvastatin 40 mg PO DAILY 10/26/16 Tizanidine HCl [Zanaflex] 8 mg PO TID PRN 10/26/16 Zolpidem Tartrate [Ambien 10 mg] 10 mg PO HS PRN 10/26/16 carBAMazepine [Tegretol] 200 mg PO DAILY 10/26/16 oxyCODONE HCL [Oxycontin] 60 mg PO BID 10/26/16 Ondansetron Odt [Zofran Odt 4 mg 4 mg PO Q4HRS PRN #30 tab 10/27/16 (*)] Promethazine HCl [Phenergan 25mg 25 mg PO Q6H PRN #10 tab 10/27/16 (*)] Prochlorperazine Maleate 10 mg 11/02/16 [Compazine 10mg (*)] Medical Decision Making - Diagnostics Imaging Results: Imaging Impressions Chest X-Ray 11/02/16 15:56 Impression: Stable negative chest. - Data Points Laboratory Results: Laboratory Results 11/02/16 16:05 11/02/16 16:05 11/02/16 11/02/16 11/02/16 16:05 16:05 16:05 WBC 12.43 10^3/uL H 10^3/uL (3.80-9.50) RBC 3.61 10^6/uL L 10^6/uL (4.40-6.38) Hgb 8.4 g/dL L g/dL (13.7-17.5) Hct 27.3 % L % (40.0-51.0) MCV 75.6 fL L fL (81.5-99.8) MCH 23.3 pg L pg (27.9-34.1) MCHC 30.8 g/dL L g/dL (32.4-36.7) RDW 17.6 % H % (11.5-15.2) Plt Count 241 10^3/uL 10^3/uL (150-400) MPV 10.6 fL fL (8.7-11.7) Neut % (Auto) 82.5 % H % (39.3-74.2) Lymph % (Auto) 12.7 % L % (15.0-45.0) [place] % (Auto) 3.2 % L % (4.5-13.0) Eos % (Auto) 0.6 % % (0.6-7.6) Baso % (Auto) 0.6 % % (0.3-1.7) Nucleat RBC Rel Count 0.0 % % (0.0-0.2) Absolute Neuts (auto) 10.24 10^3/uL H 10^3/uL (1.70-6.50) Absolute Lymphs (auto) 1.58 10^3/uL 10^3/uL (1.00-3.00) Absolute Monos (auto) 0.40 10^3/uL 10^3/uL (0.30-0.80) Absolute Eos (auto) 0.08 10^3/uL 10^3/uL (0.03-0.40) Absolute Basos (auto) 0.08 10^3/uL 10^3/uL (0.02-0.10) Absolute Nucleated RBC 0.00 10^3/uL 10^3/uL (0-0.01) Immature Gran % 0.4 % % (0.0-1.1) Immature Gran # 0.05 10^3/uL 10^3/uL (0.00-0.10) PT 14.8 SEC SEC (12.0-15.0) INR 1.16 (0.83-1.16) APTT 29.0 SEC SEC (23.0-38.0) D-Dimer Cancelled Sodium 137 mEq/L mEq/L (134-144) Potassium 4.2 mEq/L mEq/L (3.5-5.2) Chloride 107 mEq/L mEq/L (97-110) Carbon Dioxide 22 mEq/l mEq/l (22-31) Anion Gap 8 mEq/L mEq/L (8-16) BUN 5 mg/dL L mg/dL (7-23) Creatinine 1.0 mg/dL mg/dL (0.7-1.3) Estimated GFR > 60 Glucose 234 mg/dL H mg/dL (70-100) Calcium 9.1 mg/dL mg/dL (8.5-10.4) Magnesium 1.8 mg/dL mg/dL (1.6-2.3) Total Bilirubin 0.7 mg/dL mg/dL (0.1-1.4) Conjugated Bilirubin 0.3 mg/dL mg/dL (0.0-0.5) Unconjugated Bilirubin 0.4 mg/dL mg/dL (0.0-1.1) AST 15 IU/L L IU/L (17-59) ALT 21 IU/L IU/L (21-72) Alkaline Phosphatase 90 IU/L IU/L (38-126) Creatine Kinase 145 IU/L IU/L (0-224) CK-MB (CK-2) Fraction 4.09 ng/mL H ng/mL (0-3.19) CK-MB (CK-2) % 2.8 % % (0.0-4.0) Creatine Kinase Interp NEGATIVE (NEGATIVE) Troponin I < 0.012 ng/mL ng/mL (0-0.034) Total Protein 6.3 g/dL g/dL (6.3-8.2) Albumin 3.6 g/dL g/dL (3.5-5.0) Lipase 11.0 IU/L L IU/L (23-300) Medications Given: Discontinued Medications Diazepam (Valium Injection) 5 mg IVP EDNOW ONE Stop: 11/02/16 18:39 Last Admin: 11/02/16 18:53 Dose: 5 mg Diphenhydramine HCl (Benadryl Injection) 25 mg IVP EDNOW ONE Stop: 11/02/16 19:17 Last Admin: 11/02/16 19:30 Dose: 25 mg Hydromorphone HCl (Dilaudid) 2 mg IVP EDNOW ONE Stop: 11/02/16 16:06 Last Admin: 11/02/16 16:15 Dose: 2 mg Hydromorphone HCl (Dilaudid) 2 mg IVP EDNOW ONE Stop: 11/02/16 19:17 Last Admin: 11/02/16 19:30 Dose: 2 mg Sodium Chloride (Ns) 1,000 mls @ 0 mls/hr IV ONCE ONE PRN Reason: Wide Open Stop: 11/02/16 15:57 Last Admin: 11/02/16 16:10 Dose: 1,000 mls Sodium Chloride (Ns) 1,000 mls @ 0 mls/hr IV ONCE ONE PRN Reason: Wide Open Stop: 11/02/16 18:40 Last Admin: 11/02/16 18:53 Dose: 1,000 mls Ondansetron HCl (Zofran) 4 mg IVP EDNOW ONE Stop: 11/02/16 16:06 Last Admin: 11/02/16 16:18 Dose: 4 mg Ondansetron HCl (Zofran) 4 mg IVP EDNOW ONE Stop: 11/02/16 17:13 Last Admin: 11/02/16 17:25 Dose: 4 mg Prochlorperazine Maleate (Compazine) 10 mg PO EDNOW ONE Stop: 11/02/16 17:40 Last Admin: 11/02/16 18:18 Dose: 10 mg Departure - Departure Disposition: Home, Routine, Self-Care Clinical Impression: Nausea and vomiting Qualifiers: Vomiting type: unspecified Vomiting Intractability: non-intractable Qualified Code(s): R11.2 - Nausea with vomiting, unspecified Condition: Good Instructions: Acute Nausea and Vomiting (ED) Additional Instructions: 1. Stewart diet for next 24 hours. 2. Follow up with your primary care doctor 3. Return emergency room if he develops any worsening symptoms questions or concerns. Referrals: MABEL MCNULTY [Other] - As per Instructions
[2016-11-02] MEDS ORDERED: NS 1,000 ML IV ONE ×2 (15:56→18:39)
[2016-11-02] MEDS ORDERED: ONDANSETRON 4 MG/2 ML VIAL IVP ONE ×2 (16:05→17:12)
[2016-11-02] MEDS ORDERED: HYDROmorphONE/DILAUDID 1 MG/ML SYR IVP ONE ×2 (16:05→19:16)
[2016-11-02 16:22] LABS: % IMMATURE GRANULYOCYTES 0.4 % (0.0-1.1); ABSOLUTE IMMATURE GRANULOCYTES 0.05 10^3/uL (0.00-0.10); ADD DIFF? NO; ADD MORPH? NO; ADD SCAN? NO; ATYPICAL LYMPHOCYTE FLAG 0 (0-99); FRAGMENT RBC FLAG 20 (0-99); HEMATOCRIT 27.3 % (40.0-51.0); HEMOGLOBIN 8.4 g/dL (13.7-17.5); LEFT SHIFT FLG 0 (0-99); LIPEMIA HEMOLYSIS FLAG 80 (0-99); MEAN CELL HEMOGLOBIN 23.3 pg (27.9-34.1); MEAN CELL HEMOGLOBIN CONCENTR. 30.8 g/dL (32.4-36.7); MEAN CELL VOLUME 75.6 fL (81.5-99.8); MEAN PLATELET VOLUME 10.6 fL (8.7-11.7); PLATELET CLUMPS FLAG 0 (0-99); PLATELET COUNT 241 10^3/uL (150-400); RED BLOOD CELL COUNT 3.61 10^6/uL (4.40-6.38); RED CELL DISTRIBUTION WIDTH 17.6 % (11.5-15.2)
[2016-11-02 16:26] LABS: INR 1.16 (0.83-1.16); PROTIME(PATIENT) 14.8 SEC (12.0-15.0)
[2016-11-02 16:34] LABS: ALANINE AMINOTRANSFERASE 21 IU/L (21-72); ALBUMIN 3.6 g/dL (3.5-5.0); ALKALINE PHOSPHATASE 90 IU/L (38-126); ANION GAP 8 mEq/L (8-16); ASPARTATE AMINOTRANSFERASE 15 IU/L (17-59); BILIRUBIN,TOTAL 0.7 mg/dL (0.1-1.4); BILIRUBIN-CONJUGATED 0.3 mg/dL (0.0-0.5); BILIRUBIN-UNCONJUGATED 0.4 mg/dL (0.0-1.1); CALCIUM 9.1 mg/dL (8.5-10.4); CARBON DIOXIDE 22 mEq/l (22-31); CHLORIDE 107 mEq/L (97-110); GLOMERULAR FILTRATION RATE > 60; GLUCOSE 234 mg/dL (70-100); MAGNESIUM 1.8 mg/dL (1.6-2.3); POTASSIUM 4.2 mEq/L (3.5-5.2); SODIUM 137 mEq/L (134-144); TOTAL PROTEIN 6.3 g/dL (6.3-8.2)
[2016-11-02 16:45] LABS: TROPONIN I < 0.012 ng/mL (0-0.034)
[2016-11-02 17:14] LABS: CK-MB INTERPRETATION NEGATIVE (NEGATIVE)
[2016-11-02 17:23] LABS: CREATINE KINASE-MB FRACTION 4.09 ng/mL (0-3.19)
[2016-11-02] MEDS ORDERED: PROCHLORPERAZINE MALEATE 10 MG TAB PO ONE (17:39)
[2016-11-02] MEDS ORDERED: DIAZEPAM 10 MG/2 ML SYR IVP ONE (18:38)
[2016-11-02 20:18] VITALS: BP 130/63; PULSE 67; RESP 20; TEMP 97.9; O2SAT 98
== END 2016-11-02 20:19 | disposition home or self-care (01) ==
DX: R11.2 Nausea with vomiting, unspecified (principal); E10.9 Type 1 diabetes mellitus without complications; F17.200 Nicotine dependence, unspecified, uncomplicated; Z79.82 Long term (current) use of aspirin
CPT/HCPCS: 71010; 93005; 96361; 96374; 96375; 96376; 99285; J1170; J1200; J1642; J2405

== ENCOUNTER 2016-11-03 15:27 | Emergency (ER) | payer OTHER, MEDICAID ==
--- NOTE | 2016-11-03 15:53 | EDPHY ---
H & P Stated Complaint: post ictal/seizure n/v can't keep seizure meds down Time Seen by Provider: 11/03/16 15:51 Source: Patient - Personal History Current Tetanus/Diphtheria Vaccine: Yes Tetanus Vaccine Date: 2005 - Medical/Surgical History Hx Asthma: No Hx Chronic Respiratory Disease: No Hx Diabetes: Yes Hx Cardiac Disease: Yes Hx Renal Disease: No Hx Cirrhosis: No Hx Alcoholism: No Hx HIV/AIDS: No Hx Splenectomy or Spleen Trauma: No Other PMH: cardiomyopathy, DM1, SZ, anxiety, depression, chronic pain, gastroparesis, GERD, sleep apnea, neuropathy, BPH, neurogenic bladder, urethral stents, urosepsis, migraines, arthritis, cholecystectomy, mi X 3, CVA w/L sided weakness - Social History Smoking Status: Heavy smoker Constitutional: Initial Vital Signs Temperature (C) 37.3 C 11/03/16 15:46 Heart Rate 74 11/03/16 15:46 Respiratory Rate 20 11/03/16 15:46 Blood Pressure 151/88 H 11/03/16 15:46 O2 Sat (%) 99 11/03/16 15:46 O2 Delivery Mode Room Air Allergies/Adverse Reactions: iodine Allergy (Severe, Verified 11/03/16 15:45) Anaphylaxis metoclopramide HCl [From Reglan] Allergy (Severe, Verified 11/03/16 15:45) seizure Penicillins Allergy (Severe, Verified 11/03/16 15:45) Anaphylaxis albuterol Allergy (Intermediate, Verified 11/03/16 15:45) tachycardia and syncope clonazepam Allergy (Intermediate, Verified 11/03/16 15:45) hallucinate haloperidol [From Haldol] Allergy (Intermediate, Verified 11/03/16 15:45) hallucinate azithromycin Allergy (Mild, Verified 11/03/16 15:45) Rash levofloxacin [From Levaquin] Allergy (Mild, Verified 11/03/16 15:45) Rash morphine Allergy (Mild, Verified 11/03/16 15:45) Itching haloperidol lactate [From Haldol] Allergy (Verified 11/03/16 15:45) Home Medications: Medication Instructions Recorded ALPRAZolam [Xanax] 2 mg PO TID PRN 10/26/16 Aspirin EC [Aspirin EC 81 mg (*)] 81 mg PO DAILY 10/26/16 Atenolol [Tenormin 50 mg (*)] 50 mg PO DAILY 10/26/16 Fenofibrate [Lofibra] 160 mg PO DAILY 10/26/16 Fluticasone Nasal [Flonase Nasal 2 sprays EACHNARE BID 10/26/16 [place]] Gabapentin [Neurontin] 800 mg PO TID 10/26/16 HYDROmorphone HCL [Dilaudid] 8 mg PO Q4 PRN 10/26/16 Insulin Glargine [Lantus 100 40 units SC BID 10/26/16 UNITS/ML (*)] Insulin Lispro [Humalog] 0 unit SQ AD PRN 10/26/16 Lisinopril [Zestril 2.5 mg (*)] 2.5 mg PO DAILY 10/26/16 Omeprazole [Prilosec 20 mg] 20 mg PO DAILY 10/26/16 Ondansetron Odt [Zofran Odt 4 mg 4 mg PO Q4 PRN 10/26/16 (*)] QUEtiapine FUMARATE [Seroquel 200 200 mg PO HS 10/26/16 mg (*)] Sertraline HCl [Zoloft 100mg (*)] 150 mg PO DAILY 10/26/16 Simvastatin 40 mg PO DAILY 10/26/16 Tizanidine HCl [Zanaflex] 8 mg PO TID PRN 10/26/16 Zolpidem Tartrate [Ambien 10 mg] 10 mg PO HS PRN 10/26/16 carBAMazepine [Tegretol] 200 mg PO DAILY 10/26/16 oxyCODONE HCL [Oxycontin] 60 mg PO BID 10/26/16 Ondansetron Odt [Zofran Odt 4 mg 4 mg PO Q4HRS PRN #30 tab 10/27/16 (*)] Promethazine HCl [Phenergan 25mg 25 mg PO Q6H PRN #10 tab 10/27/16 (*)] Prochlorperazine Maleate 10 mg 11/02/16 [Compazine 10mg (*)] Medical Decision Making - Diagnostics Imaging Results: Imaging Impressions Abdomen/Pelvis CT 11/03/16 16:49 Impression: 1. No acute findings in the abdomen or pelvis. 2. Ground glass opacities and mucous plugging in the lung bases suggesting bronchitis. 3. Chronic bladder wall thickening 4. Stable lobulated contours of the kidneys, poorly assessed on unenhanced CT. 5. Mild splenomegaly. 6. Additional findings as above. Findings discussed with Reggie Montoya MD 11/03/2016 at 17:49. Attention: This CT examination is specifically designed to evaluate patients who are clinically suspected of having acute obstructive uropathy. This examination does not use radiographic contrast, and as such, provides only a limited evaluation of the abdomen, pelvis and retroperitoneum. If there is further clinical suspicion for pathological conditions other than obstructive uropathy, a complete CT evaluation of the abdomen and pelvis utilizing intravenous and oral contrast should be considered. Imaging: Discussed imaging studies w/ medical case manager Radiologist ED Course/Re-evaluation: CHIEF COMPLAINT: Nausea, Vomiting HISTORY OF PRESENT ILLNESS: The patient is a 41-year-old male with significant past medical history for chronic pain with narcotic dependency, diabetes, seizures, and recent hospitalization for chest pain with abnormal EKG with nausea and vomiting. The patient was seen here yesterday 11/02 for continued nausea and vomiting. He received IV Dilaudid, Valium, and Benadryl. He felt better and was discharged home. Patient's nausea and vomiting has continued. He is unable to tolerate POs. He has tried Phenergan and Zofran at home. Patient notes increased tenderness around his ileostomy bag. He denies fever or chest pain. REVIEW OF SYSTEMS: A 10 point review of systems was performed and is negative with the exception of the elements mentioned in the history of present illness. PHYSICAL EXAM: HR, BP, O2 Sat, RR. Temp noted General Appearance: Alert, well hydrated, appropriate, and non-toxic appearing. Head: Atraumatic without scalp tenderness or obvious injury Eyes: Pupils equal, round, reactive to light and accommodation, EOMI, no trauma , no injection. Ears: Clear bilaterally, no perforation, normal landmarks Nose: Atraumatic, no rhinorrhea, clear. Throat: There is no erythema or exudates, no lesions, normal tonsils, mucus membranes moist. Neck: Supple, 2+ carotid upstroke, nontender, no lymphadenopathy. Respiratory: No retractions, no distress, no wheezes, and no accessory muscle use. Lungs are clear to auscultation bilaterally. Cardiovascular: Regular rate and rhythm, no murmurs, rubs, or gallops. Bilateral carotid, radial, dorsalis pedis, and posterior tibial pulses intact. Good capillary refill all extremities. Gastrointestinal: Right lower quadrant ileostomy bag present, soft, mild tenderness, no mass, no distention. Musculoskeletal: Normal active ROM of all extremities, atraumatic. Neurological: Alert, appropriate, and interactive. The patient has normal DTRs and non-focal cranial nerves, motor, sensory, and cerebellar exam. Skin: No rashes, good turgor, no nodules on palpation. Past medical history: IDDM, Diabetic gastroparesis, Narcotic dependency, BPH, Chronic pain, Seizures, Hypertrophic, Cardiomyopathy, Osteomyelitis. Past surgical history: Left chest port, Ileostomy due to toxic megacolon Family history: Noncontributory Social history: Takes 8mg PO Dilaudid every 4 hours. DIAGNOSTICS/PROCEDURES/CRITICAL CARE TIME: CT imaging was phoned to me by the radiologist. Nothing acute visualized. DIFFERENTIAL DIAGNOSIS: The differential diagnosis for the patient's nausea and vomiting included but was not limited to electrolyte disturbance, dehydration, acute kidney injury, acute vomiting from gastroenteritis, gastritis , appendicitis, and medication side effect. MEDICAL DECISION MAKING: Patient tells me has has not been able to tolerate food of fluids for the past week. He notes tenderness around his ileostomy bag. I see no signs of infection. Plan for CT abdomen/pelvis. Patient received IV fluids. His labs have no signs of dehydration or electrolyte abnormality. The patient continues to ask for pain medication. He is on a No Narcotic list since 02/25/14. Patient is seeking narcotics. His lab work shows anemia has improved since 10/27. CT is negative, nothing acute visualized. Patient can be discharged home and can followup with his primary care physician. I offered Zofran for nausea. - Data Points Laboratory Results: Laboratory Results 11/03/16 17:10 11/03/16 17:10 11/03/16 11/03/16 17:10 17:10 WBC 9.00 10^3/uL 10^3/uL (3.80-9.50) RBC 3.62 10^6/uL L 10^6/uL (4.40-6.38) Hgb 8.5 g/dL L g/dL (13.7-17.5) Hct 27.4 % L % (40.0-51.0) MCV 75.7 fL L fL (81.5-99.8) MCH 23.5 pg L pg (27.9-34.1) MCHC 31.0 g/dL L g/dL (32.4-36.7) RDW 18.4 % H % (11.5-15.2) Plt Count 256 10^3/uL 10^3/uL (150-400) MPV 10.7 fL fL (8.7-11.7) Neut % (Auto) 74.9 % H % (39.3-74.2) Lymph % (Auto) 19.4 % % (15.0-45.0) [place] % (Auto) 3.4 % L % (4.5-13.0) Eos % (Auto) 1.2 % % (0.6-7.6) Baso % (Auto) 0.7 % % (0.3-1.7) Nucleat RBC Rel Count 0.0 % % (0.0-0.2) Absolute Neuts (auto) 6.73 10^3/uL H 10^3/uL (1.70-6.50) Absolute Lymphs (auto) 1.75 10^3/uL 10^3/uL (1.00-3.00) Absolute Monos (auto) 0.31 10^3/uL 10^3/uL (0.30-0.80) Absolute Eos (auto) 0.11 10^3/uL 10^3/uL (0.03-0.40) Absolute Basos (auto) 0.06 10^3/uL 10^3/uL (0.02-0.10) Absolute Nucleated RBC 0.00 10^3/uL 10^3/uL (0-0.01) Immature Gran % 0.4 % % (0.0-1.1) Immature Gran # 0.04 10^3/uL 10^3/uL (0.00-0.10) Sodium 140 mEq/L mEq/L (134-144) Potassium 3.8 mEq/L mEq/L (3.5-5.2) Chloride 109 mEq/L mEq/L (97-110) Carbon Dioxide 22 mEq/l mEq/l (22-31) Anion Gap 9 mEq/L mEq/L (8-16) BUN 4 mg/dL L mg/dL (7-23) Creatinine 1.0 mg/dL mg/dL (0.7-1.3) Estimated GFR > 60 Glucose 162 mg/dL H mg/dL (70-100) Calcium 9.1 mg/dL mg/dL (8.5-10.4) Total Bilirubin 0.5 mg/dL mg/dL (0.1-1.4) Conjugated Bilirubin 0.4 mg/dL mg/dL (0.0-0.5) Unconjugated Bilirubin 0.1 mg/dL mg/dL (0.0-1.1) AST 15 IU/L L IU/L (17-59) ALT 19 IU/L L IU/L (21-72) Alkaline Phosphatase 88 IU/L IU/L (38-126) Total Protein 6.5 g/dL g/dL (6.3-8.2) Albumin 3.7 g/dL g/dL (3.5-5.0) Lipase 17.0 IU/L L IU/L (23-300) Medications Given: Discontinued Medications Sodium Chloride (Ns) 1,000 mls @ 0 mls/hr IV ONCE ONE PRN Reason: Wide Open Stop: 11/03/16 16:48 Last Admin: 11/03/16 17:10 Dose: 1,000 mls Departure - Departure Disposition: Home, Routine, Self-Care Clinical Impression: Chronic pain Qualifiers: Chronic pain type: other chronic pain Qualified Code(s): G89.29 - Other chronic pain Abdominal pain Qualifiers: Abdominal location: generalized Qualified Code(s): R10.84 - Generalized abdominal pain Condition: Good Instructions: Chronic Abdominal Pain (ED) Additional Instructions: Please followup with your primary care physician. Referrals: MABEL CM [Other] - As per Instructions Report Scribed for: Reggie Montoya Report Scribed by: Yessenia Stanton Date of Report: 11/03/16 Time of Report: 18:03
[2016-11-03] MEDS ORDERED: NS 1,000 ML IV ONE ×2 (16:47)
[2016-11-03 17:24] LABS: % IMMATURE GRANULYOCYTES 0.4 % (0.0-1.1); ABSOLUTE IMMATURE GRANULOCYTES 0.04 10^3/uL (0.00-0.10); ADD DIFF? NO; ADD MORPH? NO; ADD SCAN? NO; ATYPICAL LYMPHOCYTE FLAG 0 (0-99); FRAGMENT RBC FLAG 20 (0-99); HEMATOCRIT 27.4 % (40.0-51.0); HEMOGLOBIN 8.5 g/dL (13.7-17.5); LEFT SHIFT FLG 0 (0-99); LIPEMIA HEMOLYSIS FLAG 80 (0-99); MEAN CELL HEMOGLOBIN 23.5 pg (27.9-34.1); MEAN CELL VOLUME 75.7 fL (81.5-99.8); MEAN PLATELET VOLUME 10.7 fL (8.7-11.7); PLATELET CLUMPS FLAG 0 (0-99); PLATELET COUNT 256 10^3/uL (150-400); RED BLOOD CELL COUNT 3.62 10^6/uL (4.40-6.38); RED CELL DISTRIBUTION WIDTH 18.4 % (11.5-15.2)
[2016-11-03 17:38] LABS: ALANINE AMINOTRANSFERASE 19 IU/L (21-72); ALBUMIN 3.7 g/dL (3.5-5.0); ALKALINE PHOSPHATASE 88 IU/L (38-126); ANION GAP 9 mEq/L (8-16); ASPARTATE AMINOTRANSFERASE 15 IU/L (17-59); BILIRUBIN,TOTAL 0.5 mg/dL (0.1-1.4); BILIRUBIN-CONJUGATED 0.4 mg/dL (0.0-0.5); BILIRUBIN-UNCONJUGATED 0.1 mg/dL (0.0-1.1); CALCIUM 9.1 mg/dL (8.5-10.4); CARBON DIOXIDE 22 mEq/l (22-31); CHLORIDE 109 mEq/L (97-110); GLOMERULAR FILTRATION RATE > 60; GLUCOSE 162 mg/dL (70-100); POTASSIUM 3.8 mEq/L (3.5-5.2); SODIUM 140 mEq/L (134-144); TOTAL PROTEIN 6.5 g/dL (6.3-8.2)
[2016-11-03 18:02] VITALS: BP 148/72; PULSE 60; RESP 18; TEMP 98.2; O2SAT 95
== END 2016-11-03 18:19 | disposition home or self-care (01) ==
DX: R10.84 Generalized abdominal pain (principal); G89.29 Other chronic pain; F17.200 Nicotine dependence, unspecified, uncomplicated; E10.9 Type 1 diabetes mellitus without complications; Z79.82 Long term (current) use of aspirin
CPT/HCPCS: 74176; 96360; 99285; J1642

== ENCOUNTER 2017-04-16 14:48 | Emergency (ER) | payer OTHER, MEDICAID ==
[2017-04-16 14:56] VITALS: BP 107/56; PULSE 72; RESP 18; TEMP 97.9; O2SAT 96
== END 2017-04-16 14:59 | disposition left against medical advice (07) ==
DX: Z53.21 Procedure and treatment not carried out due to patient leaving prior to being seen by health care provider (principal)

== ENCOUNTER 2017-05-23 15:27 | Emergency (ER) | payer OTHER, MEDICAID ==
[2017-05-23 15:33] VITALS: BP 105/71; PULSE 75; RESP 18; TEMP 98.1; O2SAT 94
--- NOTE | 2017-05-23 15:52 | CPEKG ---
Heart Rate: 67 RR Interval: 896 P-R Interval: 164 QRSD Interval: 142 QT Interval: 416 QTC Interval: 439 P [place]: 73 QRS [place]: 57 T Wave [place]: 227 EKG Severity - ABNORMAL ECG - EKG Impression: SINUS RHYTHM EKG Impression: LEFT BUNDLE BRANCH BLOCK Electronically Signed By: Jasmin Su 23-May-2017 23:23:18
--- NOTE | 2017-05-23 16:12 | EDPHY ---
H & P Time Seen by Provider: 05/23/17 15:49 HPI/ROS: CHIEF COMPLAINT: Chest pain HISTORY OF PRESENT ILLNESS: The patient is a 41 y/o male with a history of diabetes and chronic neck and shoulder pain complaining of constant chest pain for 3 days. The pain was initially located in the middle of his chest, but has since radiated to the right side. He used a lidocaine patch, heating pad, and his regular narcotics, but was unable to alleviate his symptoms. His symptoms are aggravated when inhaling. Did have a minor cough yesterday. Sees Dr. Brian Orta at [facility] for pain management. Denies shortness of breath, paresthesias, fever or other pertinent symptoms. REVIEW OF SYSTEMS: Aside from elements discussed in the HPI, a comprehensive 10-point review of systems was reviewed and is negative. Past Medical/Surgical History: PMH: Chronic neck and back pain, Type 1 Diabetes, seizures, cardiomyopathy, [place] x 3, GERD, anxiety, depression PSH: Cholecystectomy Social History: Sister at bedside, lives in [place], Smoking Status: Heavy smoker Physical Exam: General Appearance: Alert, pale, does not appear in pain, pleasant Eyes: Pupils equal and round, no conjunctival pallor or injection ENT, Mouth: Mucous membranes moist Neck: Normal inspection Respiratory: Lungs are clear to auscultation Cardiovascular: Regular rate and rhythm Chest: Left subclavian port Gastrointestinal: Ostomy bag in place. Abdomen is soft and non- tender Neurological: A&O, nonfocal Skin: Warm and dry, no rash Extremities: Nontender, no pedal edema Psychiatric: Mood and affect normal Constitutional: Initial Vital Signs Temperature (C) 36.7 C 05/23/17 15:29 Heart Rate 75 05/23/17 15:29 Respiratory Rate 18 05/23/17 15:29 Blood Pressure 105/71 05/23/17 15:29 O2 Sat (%) 94 05/23/17 15:29 O2 Delivery Mode Room Air Allergies/Adverse Reactions: iodine Allergy (Severe, Verified 05/23/17 15:28) Anaphylaxis metoclopramide HCl [From Reglan] Allergy (Severe, Verified 05/23/17 15:28) seizure Penicillins Allergy (Severe, Verified 05/23/17 15:28) Anaphylaxis albuterol Allergy (Intermediate, Verified 05/23/17 15:28) tachycardia and syncope clonazepam Allergy (Intermediate, Verified 12/17/17 15:28) hallucinate haloperidol [From Haldol] Allergy (Intermediate, Verified 05/23/17 15:28) hallucinate azithromycin Allergy (Mild, Verified 05/23/17 15:28) Rash levofloxacin [From Levaquin] Allergy (Mild, Verified 05/23/17 15:28) Rash morphine Allergy (Mild, Verified 05/23/17 15:28) Itching haloperidol lactate [From Haldol] Allergy (Verified 05/23/17 15:28) Home Medications: Medication Instructions Recorded ALPRAZolam [Xanax] 2 mg PO TID PRN 10/26/16 Aspirin EC [Aspirin EC 81 mg (*)] 81 mg PO DAILY 10/26/16 Atenolol [Tenormin 50 mg (*)] 50 mg PO DAILY 10/26/16 Fenofibrate [Lofibra] 160 mg PO DAILY 10/26/16 Fluticasone Nasal [Flonase Nasal 2 sprays EACHNARE BID 10/26/16 [place]] Gabapentin [Neurontin] 800 mg PO TID 10/26/16 HYDROmorphone HCL [Dilaudid] 8 mg PO Q4 PRN 10/26/16 Insulin Glargine [Lantus 100 40 units SC BID 10/26/16 UNITS/ML (*)] Insulin Lispro [Humalog] 0 unit SQ AD PRN 10/26/16 Lisinopril [Zestril 2.5 mg (*)] 2.5 mg PO DAILY 10/26/16 Omeprazole [Prilosec 20 mg] 20 mg PO DAILY 10/26/16 Ondansetron Odt [Zofran Odt 4 mg 4 mg PO Q4 PRN 10/26/16 (*)] QUEtiapine FUMARATE [Seroquel 200 200 mg PO HS 10/26/16 mg (*)] Sertraline HCl [Zoloft 100mg (*)] 150 mg PO DAILY 10/26/16 Simvastatin 40 mg PO DAILY 10/26/16 Tizanidine HCl [Zanaflex] 8 mg PO TID PRN 10/26/16 Zolpidem Tartrate [Ambien 10 mg] 10 mg PO HS PRN 10/26/16 carBAMazepine [Tegretol] 200 mg PO DAILY 10/26/16 oxyCODONE HCL [Oxycontin] 60 mg PO BID 10/26/16 Ondansetron Odt [Zofran Odt 4 mg 4 mg PO Q4HRS PRN #30 tab 10/27/16 (*)] Promethazine HCl [Phenergan 25mg 25 mg PO Q6H PRN #10 tab 10/27/16 (*)] Prochlorperazine Maleate 10 mg 11/02/16 [Compazine 10mg (*)] Medical Decision Making - Diagnostics EKG Interpretation: EKG interpreted by me reveals normal sinus rhythm with a rate of 67, normal axis , normal intervals, ST and T segments normal. Interpretation: normal EKG Imaging: I viewed and interpreted images myself ED Course/Re-evaluation: The patient is a 41 y/o male with a history of diabetes and chronic pain presenting with chest pain that I am unable to reproduce on exam. He is also pale, but does not appear to be in any pain. Plan on labs, EKG, and chest x- ray. He requests IV Dilaudid on presentation. I informed him that we would not able to provide IV narcotics in the emergency department, but I would be happy to try alternative methods for pain control. Dr. Orta paged. 1546: EKG interpreted by me reveals normal sinus rhythm, rate 67, left bundle branch block. 1628: Patient is leaving AMA. He told the ED RN that if I was not going to treat him with IV narcotics, that he would leave the emergency department and seek care elsewhere. His symptoms are c/w narcotic seeking behavior. Unclear if he has cp or not. In review of his past medical record, he typically leaves AMA if he does not get narcotics. I was unable to contact Dr. Orta to inform him of the pt's ED visit. Differential Diagnosis: includes though not limited to ACS, pneumonia, PE, pulmonary edema, GERD - Data Points Laboratory Results: Laboratory Results 05/23/17 15:30 05/23/17 15:30 Departure - Departure Disposition: Against Medical Advice Clinical Impression: Chest pain Qualifiers: Chest pain type: chest pain on breathing Qualified Code(s): R07.1 - Chest pain on breathing Condition: Good Instructions: Chest Pain (ED) Additional Instructions: Follow-up with your primary doctor within 72 hours. Return to the Emergency Department for fever, chest pain, shortness of breath, increasing pain or other worsening of condition. Referrals: [facility],. [Clinic] - As per Instructions Report Scribed for: Jasmin Su Report Scribed by: Heather Escobedo Date of Report: 05/23/17 Time of Report: 16:49 Physician Review and Approval Statement: 05/23/17 16:49 Portions of this note were transcribed by a certified medical coding specialist. I personally performed a history, physical exam, medical decision making, and confirmed accuracy of information the transcribed note.
[2017-05-23 16:16] LABS: % IMMATURE GRANULYOCYTES 0.3 % (0.0-1.1); ABSOLUTE IMMATURE GRANULOCYTES 0.02 10^3/uL (0.00-0.10); ADD DIFF? NO; ADD MORPH? NO; ADD SCAN? NO; ATYPICAL LYMPHOCYTE FLAG 20 (0-99); FRAGMENT RBC FLAG 20 (0-99); HEMOGLOBIN 9.2 g/dL (13.7-17.5); LEFT SHIFT FLG 0 (0-99); LIPEMIA HEMOLYSIS FLAG 80 (0-99); MEAN CELL HEMOGLOBIN 23.4 pg (27.9-34.1); MEAN CELL HEMOGLOBIN CONCENTR. 30.7 g/dL (32.4-36.7); MEAN CELL VOLUME 76.3 fL (81.5-99.8); MEAN PLATELET VOLUME 10.2 fL (8.7-11.7); PLATELET CLUMPS FLAG 0 (0-99); PLATELET COUNT 277 10^3/uL (150-400); RED BLOOD CELL COUNT 3.93 10^6/uL (4.40-6.38); RED CELL DISTRIBUTION WIDTH 17.2 % (11.5-15.2)
[2017-05-23 16:26] LABS: ANION GAP 14 mEq/L (8-16); CALCIUM 8.8 mg/dL (8.5-10.4); CARBON DIOXIDE 20 mEq/l (22-31); CHLORIDE 108 mEq/L (97-110); CREATININE 1.5 mg/dL (0.7-1.3); GLOMERULAR FILTRATION RATE 51; GLUCOSE 138 mg/dL (70-100); POTASSIUM 3.8 mEq/L (3.5-5.2); SODIUM 142 mEq/L (134-144)
--- NOTE | 2017-05-23 17:32 | ASDISCHSUM ---
Discharge Information Plan Status: Medically Cleared to Leave: Discharge Date:05/23/2017 04:30 PM CM D/C Disposition:Against Medical Advice ADT D/C Disposition:Against Medical Advice Projected Discharge Date:05/23/2017 04:30 PM Transportation at D/C:Self Discharge Delay Reason: Follow-Up Date:05/23/2017 04:30 PM Discharge Slot: Final Diagnosis: Placement Information Patient Contact Information Contact Name:GABE Relationship: Address:[address] Work Phone: City:[place] Alternate Phone: State/Zip Code:[place] [address] Email: Financial Information Financial Class: Primary Plan Desc:MEDICARE OUTPATIENT Primary Plan Number:[id number] Secondary Plan Desc:MED[place] Secondary Plan Number:[id number] Assessment Information LACE LACE Acuity / Level of Care Answers: No. Comorbidities - select Answers: Previous myocardial all that apply infarction Diabetes without complications Emergency dept visits in Answers: 4+ last 6 months Score: 6 Date Signed: 05/23/2017 05:32 PM Electronically Signed By:July Stinson RN Intervention Information
== END 2017-05-23 16:30 | disposition left against medical advice (07) ==
DX: R07.1 Chest pain on breathing (principal); E10.9 Type 1 diabetes mellitus without complications; I25.2 Old myocardial infarction; F17.200 Nicotine dependence, unspecified, uncomplicated; Z79.82 Long term (current) use of aspirin